=== PATIENT | male | born 1990 | race Caucasian/White ===

== ENCOUNTER 2024-08-05 22:48 | Emergency (ER) | payer OTHER ==
[~2024-08-05] VITALS: Ht 182.9 cm; Wt 185.5 kg
[2024-08-06] MEDS ORDERED: Ibuprofen 600 MG Tab PO ONE (00:55)
[2024-08-06] MEDS ORDERED: Acetaminophen 500 MG Tab PO ONE (00:55)
== END 2024-08-06 01:08 | disposition home or self-care (01) ==
LOC: ER 22:48
DX: M25.571 Pain in right ankle and joints of right foot (principal)
CPT/HCPCS: 93971; 99283-25; A9270